=== PATIENT | male | born 1995 | race Caucasian/White ===

== ENCOUNTER 2017-12-30 02:20 | Emergency (ER) | payer SELFPAY ==
[~2017-12-30] VITALS: Ht 172.7 cm; Wt 70.5 kg
[2017-12-30 03:15] VITALS: BP 131/74
== END 2017-12-30 03:32 | disposition home or self-care (01) ==
LOC: EMS 02:22
DX: T62.8X1A Toxic effect of other specified noxious substances eaten as food, accidental (unintentional), initial encounter (principal); Y92.89 Other specified places as the place of occurrence of the external cause
CPT/HCPCS: 93005; 99283